=== PATIENT | female | born 1930 | race Caucasian/White ===

== ENCOUNTER 2018-06-26 15:08 | Emergency (ER) | payer MEDICARE ==
[~2018-06-26] VITALS: Ht 160 cm; Wt 50.0 kg
[~2018-06-26 15:08] MED LIST: ASPI-611 PO; ATEN50TA PO; CLOP75TA35 PO; ISOS20TA6 PO; ONDA4TAB12 PO; PANT-47 PO; ROSU10TA PO; VALS160T2 PO
[2018-06-26 15:26] VITALS: BP 169/73
[2018-06-26] MEDS ORDERED: oxymetazoline 15 ML nasal spray NS ONE (20:20)
[2018-06-26] MEDS ORDERED: tranexamic acid 100mg/ml inj. TP ONE (20:35)
[2018-06-26] MEDS ORDERED: ONDA4TAB6 PO (21:51)
== END 2018-06-26 22:35 | disposition home or self-care (01) ==
LOC: ER 15:09
DX: R04.0 Epistaxis (principal); I25.10 Atherosclerotic heart disease of native coronary artery without angina pectoris; Z95.5 Presence of coronary angioplasty implant and graft; Z95.1 Presence of aortocoronary bypass graft; Z79.82 Long term (current) use of aspirin; Z79.899 Other long term (current) drug therapy; Z79.01 Long term (current) use of anticoagulants
CPT/HCPCS: 30901; 99284; 99285

== ENCOUNTER 2018-06-28 10:42 | Emergency (ER) | payer MEDICARE ==
[~2018-06-28] VITALS: Ht 160 cm; Wt 57.7 kg
[~2018-06-28 10:42] MED LIST changes: +ONDA4TAB6 PO
[2018-06-28 10:57] VITALS: BP 111/33
== END 2018-06-28 12:38 | disposition home or self-care (01) ==
LOC: ER 10:42
DX: Z48.00 Encounter for change or removal of nonsurgical wound dressing (principal); I25.10 Atherosclerotic heart disease of native coronary artery without angina pectoris; Z98.61 Coronary angioplasty status; Z95.1 Presence of aortocoronary bypass graft; Z60.2 Problems related to living alone; Z79.82 Long term (current) use of aspirin; Z79.899 Other long term (current) drug therapy
CPT/HCPCS: 99281

== ENCOUNTER 2018-08-07 10:13 | Outpatient (CLI) | payer MEDICARE ==
[2018-08-07] VITALS (8 sets, daily range): BP systolic 146–169; BP diastolic 54–88
[~2018-08-07] VITALS: Ht 160 cm; Wt 57.7 kg
[~2018-08-07 10:13] MED LIST changes: -ROSU10TA PO; +ROSU10TA2 PO
[2018-08-07] MEDS ORDERED: normal saline 500ml IV soln 500 ML IV ONE (10:50)
[2018-08-07] MEDS ORDERED: aminophylline 250mg/10ml inj. IV PRN (10:50)
[2018-08-07] MEDS ORDERED: nitroGLYCERIN 0.4mg SUBLingual tab SL PRN (10:50)
[2018-08-07] MEDS ORDERED: regadenoson 0.4mg/5ml syringe IV ONE ×2 (10:50→10:51)
[2018-08-07] MEDS ORDERED: aminophylline inj. 10 ML IV ONE (10:51)
== END 2018-08-07 23:59 | disposition home or self-care (01) ==
LOC: RAD 10:13
PROVIDERS: ATTEND Internal Medicine Cardiovascular Disease
DX: I25.10 Atherosclerotic heart disease of native coronary artery without angina pectoris (principal); R00.2 Palpitations; I10 Essential (primary) hypertension; I25.2 Old myocardial infarction; Z95.1 Presence of aortocoronary bypass graft; Z79.82 Long term (current) use of aspirin; Z79.899 Other long term (current) drug therapy
CPT/HCPCS: 78452; 93017; A9500; J0280; J7030

== ENCOUNTER 2019-03-05 11:17 | Emergency (ER) | payer MEDICARE ==
[~2019-03-05] VITALS: Ht 160 cm; Wt 56.8 kg
[2019-03-05 11:59] LABS: BASOPHILS % (AUTO) 0.6 % (0-1); EOSINOPHILS # (AUTO) 0.1 X10'3 (0-0.9); HEMATOCRIT 31.6 % (35.0-45.0); HEMOGLOBIN 10.2 g/dl (12.0-16.0); LYMPHOCYTES # (AUTO) 1.2 X10'3 (1.1-4.8); LYMPHOCYTES % (AUTO) 18.4 % (21-51); MEAN CORPUSCULAR HEMOGLOBIN 26.6 PG (27.0-31.0); MEAN CORPUSCULAR HGB CONC 32.3 g/dL (33.0-36.5); MEAN CORPUSCULAR VOLUME 82.3 FL (78-98); MEAN PLATELET VOLUME 7.3 FL (7.4-10.4); MONOCYTES # (AUTO) 0.5 X10'3 (0-0.9); MONOCYTES % (AUTO) 7.6 % (2-12); NEUTROPHILS # (AUTO) 4.6 X10'3 (1.8-7.7); NEUTROPHILS % (AUTO) 72.4 % (42-75); PLATELET COUNT 285 X10'3 (140-440); RED BLOOD COUNT 3.83 X10'6 (4.20-5.60); RED CELL DISTRIBUTION WIDTH 17.1 % (11.5-14.5); WHITE BLOOD COUNT 6.3 X10'3 (4.5-11.0)
[2019-03-05 12:11] LABS: ALANINE AMINOTRANSFERASE 32 U/L (12-78); ALBUMIN 3.4 G/DL (3.4-5.0); ALKALINE PHOSPHATASE 99 IU/L (46-116); ANION GAP 10 (8-16); ASPARTATE AMINO TRANSFERASE 37 U/L (10-37); BILIRUBIN,TOTAL 0.4 MG/DL (0.1-1.0); BLOOD UREA NITROGEN 28 MG/DL (7-18); BUN/CREATININE RATIO 28.6 (6.6-38.0); CALCIUM 9.6 MG/DL (8.5-10.1); CHLORIDE 107 MMOL/L (99-107); CREATININE 0.98 MG/DL (0.40-0.90); GLUCOSE 93 MG/DL (70-104); POTASSIUM 4.4 MMOL/L (3.5-5.1); SODIUM 144 MMOL/L (135-145); TOTAL CARBON DIOXIDE 26.6 MMOL/L (24-32); TOTAL PROTEIN 6.9 G/DL (6.4-8.2); eGFR 54 ML/MIN
[2019-03-05 13:32] VITALS: BP 163/68
== END 2019-03-05 13:35 | disposition home or self-care (01) ==
LOC: ER 11:17
DX: R07.89 Other chest pain (principal); I25.10 Atherosclerotic heart disease of native coronary artery without angina pectoris; Z98.61 Coronary angioplasty status; Z95.1 Presence of aortocoronary bypass graft; Z88.1 Allergy status to other antibiotic agents; Z79.82 Long term (current) use of aspirin; Z79.899 Other long term (current) drug therapy
CPT/HCPCS: 36415; 71045; 80053; 83735; 83880; 84484; 85025; 93005; 99284